=== PATIENT | male | born 1990 ===

== ENCOUNTER 2018-09-23 20:59 | Inpatient (IN) ==
[2018-09-23] MEDS ORDERED: ONDANSETRON 4 MG/2 ML VIAL IV PRN (22:40)
[2018-09-23] MEDS ORDERED: ACETAMINOPHEN 325 MG TABLET PO PRN (22:40)
[2018-09-23] MEDS ORDERED: DEXTROSE 50% 25 GM/50 ML VIAL IV PRN (22:40)
[2018-09-23] MEDS ORDERED: GLUCAGON 1 MG VIAL IM PRN (22:40)
[2018-09-24] MEDS: PIPERACILLIN/TAZOBACTAM 3,375 MG in SODIUM CHLORIDE 0.9% 100 ML IV SCH ×4 (00:27→23:34)
[2018-09-24] MEDS: SODIUM CHLORIDE 0.9% 1,000 ML IV SCH ×4 (00:28→23:33)
[2018-09-24] MEDS: INSULIN REGULAR 100 UNIT/ML SUBCUT SCH ×5 (00:30→22:15)
[2018-09-24] MEDS: HYDROmorphone 2 MG/1 ML VIAL IV PRN ×3 (00:34→15:06)
[2018-09-24 04:54] LABS: Basophils % 0.2 % (0.0-0.8); Eosinophils # 0.1 10*3/uL (0.0-0.87); Eosinophils % 0.9 % (0.00-10.9); Hematocrit 38.7 VOL% (42.0-52.0); Hemoglobin 13.5 GM/DL (14.0-18.0); Immature Granulocytes % 0.4 %; Immature Granulocytes Absolute 0.05 #; Lymphocytes # 2.4 10*3/uL (1.4-4.0); Lymphocytes % 17.7 % (21.2-54.2); Mean Corpuscular HGB Conc 34.9 GM/DL (32-36); Mean Corpuscular Hemoglobin 30 PG (27-34); Mean Corpuscular Volume 85.1 FL (87-102); Mean Platelet Volume 10.1 FL (9.6-12.0); Monocytes # 1.4 10*3/uL (0.11-0.8); Monocytes % 10.3 % (1.7-12.7); Neutrophils # 9.7 10*3/uL (1.4-7.4); Neutrophils % 70.5 % (38.7-73.9); Platelet Count 263 T/CUMM (130-400); Red Blood Count 4.55 MC/CUMM (3.8-5.5); Red Cell Distribution Width 11.8 % (9.3-17.3); White Blood Count 13.8 T/CUMM (4-12)
[2018-09-24 05:12] LABS: Albumin 2.8 G/DL (3.4-5.0); Bilirubin,Total 1.1 MG/DL (0.2-1.0); Calcium 7.8 MG/DL (8.5-10.1); Osmolality,Calculated 278.1 MOS/KG (273-304); Potassium 3.1 MMOL/L (3.5-5.1); Total Protein 7.3 G/DL (6.4-8.3)
[2018-09-24] MEDS ORDERED: POTASSIUM CHLORIDE RIDER 10 MEQ in PREMIX 1 EACH IV PRN (07:18)
[2018-09-24 07:40] LABS: Calcium 7.8 MG/DL (8.5-10.1); Osmolality,Calculated 275.4 MOS/KG (273-304); Potassium 3.2 MMOL/L (3.5-5.1)
[2018-09-24] MEDS: PANTOPRAZOLE 40 MG VIAL IV SCH (08:08)
[2018-09-24] MEDS ORDERED: BUPIVACAINE 0.5% 50 ML VIAL ONE (08:17)
[2018-09-24] MEDS ORDERED: LIDOCAINE 1%/EPI INJ 20 ML VIAL ONE (08:18)
[2018-09-24] MEDS ORDERED: ACETAMINOPHEN 1,000 MG/100 ML VIAL IV ONE (08:50)
[2018-09-24] MEDS ORDERED: SEVOFLURANE 1 UNIT/15 MINUTE INH ONE (09:28)
[2018-09-24] MEDS ORDERED: PROPOFOL 200 MG/20 ML VIAL IV ONE (09:28)
[2018-09-24] MEDS ORDERED: fentaNYL 100 MCG/2 ML VIAL ONE ×2 (09:28→09:29)
[2018-09-24] MEDS ORDERED: ONDANSETRON 4 MG/2 ML VIAL ONE (09:29)
[2018-09-24] MEDS ORDERED: MIDAZOLAM 2 MG/2 ML VIAL ONE (09:29)
[2018-09-24] MEDS ORDERED: KETOROLAC 30 MG/1 ML VIAL ONE (09:29)
[2018-09-24] MEDS: sitaGLIPtin 25 MG TABLET PO SCH (11:59)
[2018-09-24] MEDS: INSULIN GLARGINE 100 UNIT/ML SUBCUT SCH (11:59)
[2018-09-24] MEDS: POTASSIUM CHLORIDE 20 MEQ TABLET PO PRN ×4 (11:59→22:14)
[2018-09-24] MEDS: GABAPENTIN 100 MG CAPSULE PO SCH ×2 (15:05→22:15)
[2018-09-24] MEDS ORDERED: SIMVASTATIN 20 MG TABLET PO SCH (21:00)
[2018-09-25] MEDS: PIPERACILLIN/TAZOBACTAM 3,375 MG in SODIUM CHLORIDE 0.9% 100 ML IV SCH (05:55)
[2018-09-25] MEDS ORDERED: ENOXAPARIN 40 MG/0.4 ML SYRINGE SUBCUT SCH (08:00)
[2018-09-25] MEDS ORDERED: SODIUM HYPOCHLORITE 0.25% IRRIG 473 ML BOTTLE TOP SCH (09:00)
[2018-09-25] MEDS ORDERED: FENOFIBRATE 145 MG TABLET PO SCH (09:00)
[2018-09-25] MEDS: SODIUM CHLORIDE 0.9% 1,000 ML IV SCH (09:07)
[2018-09-25] MEDS: sitaGLIPtin 25 MG TABLET PO SCH (09:08)
[2018-09-25] MEDS: POTASSIUM CHLORIDE 20 MEQ TABLET PO PRN (09:09)
[2018-09-25] MEDS: INSULIN REGULAR 100 UNIT/ML SUBCUT SCH ×2 (09:09→13:02)
[2018-09-25] MEDS: INSULIN GLARGINE 100 UNIT/ML SUBCUT SCH (09:09)
[2018-09-25] MEDS: GABAPENTIN 100 MG CAPSULE PO SCH (09:09)
[2018-09-25] MEDS: PANTOPRAZOLE 40 MG VIAL IV SCH (09:10)
[2018-09-25 11:46] VITALS: BP 118/81
[2018-09-25] MEDS ORDERED: AMOXICILLIN/CLAV 875 MG TABLET PO SCH (21:00)
== END 2018-09-25 13:34 | disposition home or self-care (01) | DRG 988 ==
LOC: EDUNIT# → EDBD → N.ED 20:59 → N.EDINP 21:20 → N.2E 22:06
PROVIDERS: ADMIT Surgery; ATTEND Surgery